=== PATIENT | female | born 1975 ===

== ENCOUNTER 2017-11-04 09:51 | Emergency (ER) | payer BC ==
[~2017-11-04] VITALS: Ht 170.2 cm; Wt 63.5 kg
[2017-11-04] MEDS ORDERED: SINGULAIR4 M1 (09:58)
[2017-11-04] MEDS ORDERED: MEDROLPACK PO (11:22)
[2017-11-04] MEDS ORDERED: ZYRTEC10 M3 PO (11:22)
== END 2017-11-04 12:30 | disposition home or self-care (01) ==
LOC: ER 09:51
DX: T78.1XXA Other adverse food reactions, not elsewhere classified, initial encounter (principal); R21 Rash and other nonspecific skin eruption; L55.9 Sunburn, unspecified